=== PATIENT | male | born 1960 | race Caucasian/White ===

== ENCOUNTER 2020-01-07 06:42 | Day surgery (SDC) | payer OTHER ==
[2019-12-29 13:56] LABS: EOSINOPHILS # (AUTO) 0.1 X10'3 (0-0.9); MONOCYTES # (AUTO) 0.9 X10'3 (0-0.9); NEUTROPHILS # (AUTO) 6.5 X10'3 (1.8-7.7); RED CELL DISTRIBUTION WIDTH 13.4 % (11.5-14.5)
[2019-12-29 13:57] LABS: BASOPHILS % (AUTO) 0.3 % (0-1); EOSINOPHILS % (AUTO) 1.1 % (0-6); LYMPHOCYTES # (AUTO) 2.6 X10'3 (1.1-4.8); MEAN CORPUSCULAR HEMOGLOBIN 32.1 PG (27.0-31.0); MEAN CORPUSCULAR HGB CONC 34.5 g/dL (33.0-36.5); MEAN CORPUSCULAR VOLUME 93.2 FL (78-98); MEAN PLATELET VOLUME 7.5 FL (7.4-10.4); MONOCYTES % (AUTO) 8.4 % (2-12); NEUTROPHILS % (AUTO) 64.2 % (42-75); PRE OP HEMATOCRIT 47.6 % (42.0-52.0); PRE OP HEMOGLOBIN 16.4 g/dL (14.0-17.9); PRE OP PLATELET COUNT 244 X10'3 (140-440); RED BLOOD COUNT 5.11 X10'6 (4.70-6.10)
[2019-12-29 14:10] LABS: ALBUMIN 4.2 G/DL (3.4-5.0); ALKALINE PHOSPHATASE 100 IU/L (46-116); BLOOD UREA NITROGEN 17 MG/DL (7-18); BUN/CREATININE RATIO 16.3 (5.4-32.0); CHLORIDE 103 MMOL/L (99-107); CREATININE 1.04 MG/DL (0.60-1.10); PRE OP ANION GAP 6 (8-16); PRE OP AST 91 U/L (10-37); PRE OP BILIRUB, TOTAL 0.8 MG/DL (0.0-1.0); PRE OP GLUCOSE 88 MG/DL (70-104); PRE OP POTASSIUM 3.7 MMOL/L (3.4-5.1); PRE OP SODIUM 140 MMOL/L (135-145); TOTAL CARBON DIOXIDE 31.4 MMOL/L (24-32); TOTAL PROTEIN 8.5 G/DL (6.4-8.2); eGFR 73 ML/MIN
[2019-12-29 14:11] LABS: PRE OP ALT 191 U/L (30-65)
[~2020-01-07] VITALS: Ht 182.9 cm; Wt 88.5 kg
[2020-01-07] VITALS (15 sets, daily range): BP systolic 116–186; BP diastolic 74–113
[~2020-01-07 06:42] MED LIST: NO HOME MEDS; ceFAZolin 2gm in dextrose, iso 50 ML IV ONE; famotidine 20mg tablet PO ONE; ringers solution, lacted 1,000 ML IV SCH; vancomycin 1,500 MG in NS 300ml IV soln IV ONE
[2020-01-07] MEDS ORDERED: ceFAZolin 1000mg inj ONE (06:48)
[2020-01-07] MEDS ORDERED: vancomycin 1,000mg inj ONE (06:48)
[2020-01-07] MEDS ORDERED: Thrombin (Bovine) 5,000 unit vial TP ONE (06:48)
[2020-01-07] MEDS ORDERED: ROPIVAcaine inj 200 MG, ketorolac trometh inj. 30 MG, epiNEPHrine inj 0.6 MG, morphine ... IU ONE ×5 (07:35)
[2020-01-07] MEDS ORDERED: TRANEXAMIC ACID 1 GM IN NACL,ISO-OS 100 ML IV ONE (07:40)
[2020-01-07 07:51] LABS: PRE OP INR 1.1 INR; PRE OP PROTIME 10.9 SECONDS (9.0-12.0)
[2020-01-07 07:52] LABS: ALKALINE PHOSPHATASE 91 IU/L (46-116); BLOOD UREA NITROGEN 18 MG/DL (7-18); BUN/CREATININE RATIO 19.4 (5.4-32.0); CALCIUM 9.5 MG/DL (8.5-10.1); CHLORIDE 103 MMOL/L (99-107); CREATININE 0.93 MG/DL (0.60-1.10); PRE OP ANION GAP 9 (8-16); PRE OP AST 53 U/L (10-37); PRE OP BILIRUB, TOTAL 0.7 MG/DL (0.0-1.0); PRE OP GLUCOSE 110 MG/DL (70-104); PRE OP SODIUM 139 MMOL/L (135-145); TOTAL CARBON DIOXIDE 26.7 MMOL/L (24-32); TOTAL PROTEIN 8.1 G/DL (6.4-8.2); eGFR 83 ML/MIN
[2020-01-07 07:54] LABS: PRE OP ALT 120 U/L (30-65); PRE OP POTASSIUM 3.3 MMOL/L (3.4-5.1)
[2020-01-07] MEDS ORDERED: fentaNYL/PF 50MCG/1 ML 2ML syringe ONE ×2 (10:33→10:58)
[2020-01-07] MEDS ORDERED: MIDAZolam 5mg/5ml vial ONE (10:33)
[2020-01-07] MEDS ORDERED: calcium chloride 100 MG/1 ML inj IV ONE (11:03)
[2020-01-07] MEDS ORDERED: ROPIVAcaine 0.2% (10 MG/5 ML) BOLUS INJECTION ADDCANAL PRN (11:30)
[2020-01-07] MEDS ORDERED: ROPIVAcaine 0.2%/PF PUMP/bolus 550 ML ADDCANAL SCH (11:30)
[2020-01-07] MEDS ORDERED: morphine 2 MG/ML inj. syringe IV PRN (11:30)
[2020-01-07] MEDS ORDERED: ondansetron/PF 4mg/2ml inj IV PRN ×2 (11:30→16:05)
[2020-01-07] MEDS ORDERED: meperidine/PF 25mg/ml syringe IV PRN ×3 (11:30)
[2020-01-07] MEDS ORDERED: ringers solution, lacted 1,000 ML IV SCH (11:30)
[2020-01-07] MEDS ORDERED: morphine 4 MG/ML inj SYRINge IV PRN (11:30)
[2020-01-07] MEDS ORDERED: proCHLORperazine 10 MG/2 ml inj IV PRN (11:30)
[2020-01-07] MEDS ORDERED: hydrALAZINE 20mg/ml inj. IV ONE (11:38)
[2020-01-07] MEDS ORDERED: propofol inj 40 ML IV ONE (11:38)
[2020-01-07] MEDS ORDERED: LIDOcaine 1%/PF 5ML 10 MG/ML VIAL ONE (11:38)
[2020-01-07] MEDS ORDERED: diphenhydrAMINE 50 mg/ml inj ONE (12:25)
--- NOTE | 2020-01-07 12:40 | NUR ---
Received from OR via BED , accompanied by Anesthesiologist DR DE GUZMAN and report given by Anesthesiolgist. PATIENT WAKING UP, DENIES PAIN, V/S WNL, NEUROVASCULAR CHECKS INTACT, 18G PIV LUE , KHLOE DRESSING TO RIGHT KNEE CDI W/ COLD POWDER PACK AND ON QUE PUMP AT 4ML/HR , FULL SENSATION BLE
[2020-01-07] MEDS ORDERED: hydrALAZINE 20mg/ml inj. IV PRN (13:05)
--- NOTE | 2020-01-07 13:30 | NUR ---
PATIENT A&OX4, DENIES PAIN, V/S WNL, NEUROVASCULAR CHECKS INTACT, 20G PIV LUE , DRESSING TO RIGHT KNEE CDI W/ COLD POWDER PACK W/ SCD ON. KHLOE DRESSING AND ONQ BALL AT 4MLHR. PATIENT TAKEN TO 4013B WITH ALL BELONGINGS AND HOOKED UP TO MONITORS IN ROOM AND REPORT GIVEN TO CAR DELIVERER WHO HAS TAKEN OVER PATIENT CARE.
--- NOTE | 2020-01-07 16:00 | NUR ---
Per. Dr. Hines, patient was to be discharged today (same day as surgery) if he was able to walk 150ft with FWW and do 2 stairs. Spoke to physical therapy, while trying to stand patient up, patient became diaphoretic dizzy and nauseas. Blood pressure dropped 60 points. Physical therapy did not feel it was safe to walk patient. I called Dr. Hines, he said oayk to admit overnight and hopefully DC home in the morning.
[2020-01-07] MEDS: ceFAZolin 1GM/D5W- ADD-VANTAGE 50 ML IV SCH ×2 (16:51→23:52)
--- NOTE | 2020-01-07 18:17 | NUR ---
Problems reprioritized. Patient report given, questions answered & plan of care reviewed with Ivy SANDS.
--- NOTE | 2020-01-07 18:52 | NUR ---
Patient in room ORTHO 4013. I have received report from Arcelia SANDS and had the opportunity to ask questions and assume patient care.
[2020-01-07] MEDS: potassium cl 20mEq in 1/2 NS 1,000 ML IV SCH (21:23)
[2020-01-07] MEDS: HYDROcodone/acetaminophen 10/325mg tab PO PRN (23:52)
[2020-01-08] MEDS: potassium cl 20mEq in 1/2 NS 1,000 ML IV SCH ×2 (01:50→09:50)
[2020-01-08 02:00] VITALS: BP 147/79
[2020-01-08] MEDS: HYDROcodone/acetaminophen 10/325mg tab PO PRN (04:54)
[2020-01-08 06:00] VITALS: BP 180/100
--- NOTE | 2020-01-08 06:40 | NUR ---
Problems reprioritized. Patient report given, questions answered & plan of care reviewed with Kaitlin SANDS.
[2020-01-08] MEDS ORDERED: potassium Cl 20 mEq SR tablet PO PRN ×2 (07:00)
[2020-01-08] MEDS ORDERED: magnesium 4gm in 100ml NS 100 ML IV PRN (07:00)
[2020-01-08] MEDS ORDERED: magnesium Cl slow-release 64mg tablet PO PRN (07:00)
[2020-01-08] MEDS ORDERED: potassium CL 10mEq/100ml bag 100 ML IV PRN (07:00)
[2020-01-08] MEDS ORDERED: K and/or MAG REPLACEMENT MC SCH (08:00)
[2020-01-08] MEDS ORDERED: WALKERFR (08:10)
[2020-01-08 09:43] LABS: MAGNESIUM 1.9 MG/DL (1.5-2.4); POTASSIUM 3.6 MMOL/L (3.5-5.1)
[2020-01-08 10:00] VITALS: BP 188/99
--- NOTE | 2020-01-08 11:20 | NUR ---
PATIENT STABLE AND APPROPRIATE FOR DISCHARGE, IV TAKEN OUT, EDUCATION GIVEN, ALL BELONGINGS SENT WITH PATIENT, WALKER TAKEN WITH PATIENT, PATIENT TAKEN TO LOBBY IN WHEELCHAIR TO AN AWAITING CAR WHERE FRIEND WILL TAKE PATIENT HOME
== END 2020-01-08 11:20 | disposition home or self-care (01) ==
LOC: PAS 06:42 → EDSTATUS 09:15 → ORTHO 4S 13:49 → PAS 01-08 11:20
PROVIDERS: ATTEND Orthopaedic Surgery
DX: M17.11 Unilateral primary osteoarthritis, right knee (principal); M25.761 Osteophyte, right knee; I10 Essential (primary) hypertension; G89.18 Other acute postprocedural pain; Z87.891 Personal history of nicotine dependence; Z79.899 Other long term (current) drug therapy; Z79.01 Long term (current) use of anticoagulants; Z20.828 Contact with and (suspected) exposure to other viral communicable diseases
CPT/HCPCS: 27446; 36415; 64447; 76942; 80053; 82948; 83735; 84132; 85025; 85610; 85730; 87081; 87635; 93005; 97110; 97116; 97161; 97530; A6454; C1713; C1776; J0360; J0690; J1200; J2250; J2704; J2795; J3010; J3370; J7040; J7120; A4215; A7000; G0378; J3480

== ENCOUNTER 2022-10-24 12:38 | Emergency (ER) | payer MEDICAID, OTHER ==
[~2022-10-24] VITALS: Ht 182.9 cm; Wt 84.1 kg
[~2022-10-24 12:38] MED LIST changes: +WALKERFR; -ceFAZolin 2gm in dextrose, iso 50 ML IV ONE; -famotidine 20mg tablet PO ONE; -ringers solution, lacted 1,000 ML IV SCH; -vancomycin 1,500 MG in NS 300ml IV soln IV ONE
[2022-10-24 12:43] VITALS: TEMP 98.9
[2022-10-24 13:30] LABS: BASOPHILS # (AUTO) 0.1 X10'3 (0-0.2); BASOPHILS % (AUTO) 0.7 % (0-1); EOSINOPHILS # (AUTO) 0.1 X10'3 (0-0.9); EOSINOPHILS % (AUTO) 1.5 % (0-6); HEMATOCRIT 46.1 % (42.0-52.0); HEMOGLOBIN 15.3 g/dl (14.0-17.9); LYMPHOCYTES % (AUTO) 21.9 % (21-51); MEAN CORPUSCULAR HEMOGLOBIN 31.8 PG (27.0-31.0); MEAN CORPUSCULAR HGB CONC 33.3 g/dL (33.0-36.5); MEAN CORPUSCULAR VOLUME 95.4 FL (78-98); MEAN PLATELET VOLUME 8.9 FL (7.4-10.4); MONOCYTES # (AUTO) 0.7 X10'3 (0-0.9); MONOCYTES % (AUTO) 7.7 % (2-12); NEUTROPHILS # (AUTO) 6.4 X10'3 (1.8-7.7); NEUTROPHILS % (AUTO) 68.2 % (42-75); PLATELET COUNT 263 X10'3 (140-440); RED BLOOD COUNT 4.83 X10'6 (4.70-6.10); RED CELL DISTRIBUTION WIDTH 15.2 % (11.5-14.5); WHITE BLOOD COUNT 9.3 X10'3 (4.5-11.0)
[2022-10-24 13:53] LABS: ALANINE AMINOTRANSFERASE 551 U/L (12-78); ALBUMIN 3.8 G/DL (3.4-5.0); ALBUMIN/GLOBULIN RATIO 0.9 (1.1-1.5); ALKALINE PHOSPHATASE 118 IU/L (46-116); ANION GAP 12 (8-16); ASPARTATE AMINO TRANSFERASE 294 U/L (10-37); BLOOD UREA NITROGEN 20 MG/DL (7-18); BUN/CREATININE RATIO 15.9 (10.0-20.0); CALCIUM 9.7 MG/DL (8.5-10.1); CHLORIDE 104 MMOL/L (99-107); CREATININE 1.26 MG/DL (0.60-1.10); GLUCOSE 98 MG/DL (70-104); POTASSIUM 3.7 MMOL/L (3.5-5.1); SODIUM 143 MMOL/L (135-145); TOTAL CARBON DIOXIDE 26.7 MMOL/L (24-32); TOTAL PROTEIN 8.1 G/DL (6.4-8.2); eGFR 58 ML/MIN
[2022-10-24] MEDS ORDERED: LISI40TA13 PO (15:06)
[2022-10-24 15:08] VITALS: BP 178/112; PULSE 63; RESP 20; O2SAT 98
== END 2022-10-24 15:16 | disposition home or self-care (01) ==
LOC: ER 12:39
DX: I10 Essential (primary) hypertension (principal); R20.0 Anesthesia of skin; R51.9 Headache, unspecified
CPT/HCPCS: 36415; 71045; 80053; 83880; 84484; 85025; 93005; 99285